=== PATIENT | male | born 1995 ===

== ENCOUNTER 2020-01-17 20:51 | Emergency (ER) | payer SELFPAY ==
[2020-01-17] MEDS ORDERED: Sodium Chloride 0.9% 1,000 ML IV ONE (21:03)
[2020-01-17] MEDS: Sodium Chloride 0.9% 10 ML Syringe FLUSH PRN ×2 (21:15→22:46)
[2020-01-17] MEDS ORDERED: LORazepam 2 MG/ML SDV IVPUSH ONE (21:19)
[2020-01-17] MEDS ORDERED: Potassium Chloride 20 MEQ Tab.ER PO ONE (22:27)
[2020-01-17] MEDS ORDERED: cefTRIAXone 1 GM in Sodium Chloride 0.9% 50 ML IV ONE (22:42)
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
[2020-01-17] MEDS ORDERED: cefTRIAXone 1 GM Vial IVPUSH ONE (22:44)
== END 2020-01-17 23:00 ==
LOC: FB.ED 20:51
DX: S51.811A Laceration without foreign body of right forearm, initial encounter (principal); S01.81XA Laceration without foreign body of other part of head, initial encounter; S61.412A Laceration without foreign body of left hand, initial encounter; F17.210 Nicotine dependence, cigarettes, uncomplicated; F10.129 Alcohol abuse with intoxication, unspecified; E87.6 Hypokalemia; Y90.8 Blood alcohol level of 240 mg/100 ml or more; V48.5XXA Car driver injured in noncollision transport accident in traffic accident, initial encounter
CPT/HCPCS: 12001; 12011; 36415; 80053; 80305; 80307; 85027; 96374; 96375; 99284; A9270; J0696; J2060; J7030